=== PATIENT | male | born 1945 | race Caucasian/White ===

== ENCOUNTER → 2016-07-08 | Outpatient (CLI) | payer MEDICARE, OTHER ==
[~2016-07-08] MED LIST: ACCU CHECK; CARD120T4 PO; CARD240C6 PO; CLON0.5T PO; CLOP75 PO; FURO1TAB60 PO; FURO1TAB93 PO; IRBE150T49 PO; LANS30 PO; LEVO500T3 PO; PLAV75TA29 PO; ROSU20; ROSU40 PO; THYROXINE; VICT18IN SQ; [UNRECOGNIZED DRUG - OTHER]
[2016-07-08 14:13] LABS: ANION GAP 9 MEQ/L (5-15); BICARBONATE 28.9 MEQ/L (21.0-32.0); BLOOD UREA NITROGEN 15 MG/DL (7-18); CHLORIDE 102 MEQ/L (98-107); GLOMERULAR FILTRATION RATE 56 ML/MIN (>89); GLUCOSE,FASTING 100 MG/DL (74-99); HDL CHOLESTEROL 43.8 MG/DL (40.0-60.0); LDL CHOLESTEROL 84 MG/DL (0-99); POTASSIUM 3.5 MEQ/L (3.5-5.1); SODIUM (NA) 140 MEQ/L (136-145)
[2016-07-08 17:07] LABS: HEMOGLOBIN A1a 1.5 %; HEMOGLOBIN A1b 1.9 %; HEMOGLOBIN Ao 82.5 %; HEMOGLOBIN LA1C 2.3 %; HEMOGLOBIN P3 4.4 %
== END ==
LOC: CLAB 13:28
PROVIDERS: ATTEND Internal Medicine Cardiovascular Disease
DX: R73.01 Impaired fasting glucose (principal); I25.810 Atherosclerosis of coronary artery bypass graft(s) without angina pectoris; I51.7 Cardiomegaly; E78.2 Mixed hyperlipidemia
CPT/HCPCS: 36415; 80048; 80061; 83036

== ENCOUNTER → 2016-11-15 | Outpatient (CLI) | payer MEDICARE, OTHER ==
[2016-11-15 09:23] LABS: MEAN CORPUSCULAR HGB CONC 29.5 % (32.0-36.0)
[2016-11-15 09:52] LABS: AUTOMATED NEUTROPHIL # 6.1 TH/MM3 (1.8-7.7); BASOPHIL # 0.1 TH/MM3 (0-0.2); BASOPHIL % 0.6 % (0.0-2.0); EOSINOPHIL # 0.2 TH/MM3 (0-0.4); EOSINOPHIL % 2.1 % (0.0-4.0); HEMATOCRIT 32.8 % (39.0-51.0); HEMO FLAGS DIFF FINAL; LYMPHOCYTE # 0.9 TH/MM3 (1.0-4.8); MEAN CELL VOLUME 62.3 FL (80.0-100.0); MEAN CORPUSCULAR HEMOGLOBIN 18.4 PG (27.0-34.0); MONO % 7.7 % (0.0-8.0); NEUT % 77.6 % (16.0-70.0); PLATELET COUNT 260 TH/MM3 (150-450); RED BLOOD COUNT 5.26 MIL/MM3 (4.50-5.90); RED CELL DISTRIBUTION WIDTH 21.5 % (11.6-17.2); WHITE BLOOD COUNT 7.9 TH/MM3 (4.0-11.0)
[2016-11-15 10:25] LABS: ALKALINE PHOSPHATASE 74 U/L (45-117); ALT (GPT) 16 U/L (12-78); ANION GAP 9 MEQ/L (5-15); AST (GOT) 15 U/L (15-37); BICARBONATE 27.6 MEQ/L (21.0-32.0); BLOOD UREA NITROGEN 17 MG/DL (7-18); CHLORIDE 101 MEQ/L (98-107); GLOMERULAR FILTRATION RATE 49 ML/MIN (>89); GLUCOSE,FASTING 117 MG/DL (74-99); HDL CHOLESTEROL 39.9 MG/DL (40.0-60.0); INDIRECT BILIRUBIN 0.4 MG/DL (0.0-0.8); LDL CHOLESTEROL 90 MG/DL (0-99); POTASSIUM 3.8 MEQ/L (3.5-5.1); SODIUM (NA) 138 MEQ/L (136-145); TOTAL BILIRUBIN ADULT 0.5 MG/DL (0.2-1.0)
[2016-11-15 11:24] LABS: HEMOGLOBIN A1a 1.4 %; HEMOGLOBIN A1b 1.9 %; HEMOGLOBIN Ao 82.6 %; HEMOGLOBIN LA1C 2.5 %; HEMOGLOBIN P3 5.9 %
--- NOTE | 2016-11-21 16:52 | CATHPROC ---
[employer] HIS Report Study Information Study Number Scheduled Start Study Start [id number] 11/21/2016 Nov 21 2016 3:40PM Referring Institution Admit Source Facility Department 1 Other [facility] Physician and Clinical Staff Initial Oscar Muniz Auto Dismantler Arya Marroquin,RN Auto Dismantler Nilay RICHARDSON, Joey Recorder Neri Davis RCIS(BS) Scrub Kate Morton RT(R) Equipment Time Vocational Technical Education Teacher Description Size Mfg Part Number Used/Scraped [id number] 15:54 MEDLINE INDUSTRIES SUTURE, STRIP PLUS 1/2" * Used *[id number] 15:54 MEDLINE PACER ADHESIVE, MASTISOL 2/3CC 2/3CC 0523-48 Used 15:54 MEDLINE PACER LINN, LIMB * 2530 *[id number] Used [id number] 15:54 MEDLINE PACER PACK, PACER CUSTOM * Used *[id number] 15:54 MEDLINE PACER PEN, SKIN DUAL W/ RULER * Used *[id number] 16:02 Needle Sponge Count 1 111 Used 16:02 Needle Sponge Count 10 10 Used 16:02 Needle Sponge Count 2 2 Used [id number] *[id number] SUTURE, 3-0 VICRYL [SH] ([id number]) SUTURE, 3-0 VICRYL [SH] ([id number]) SUTURE, 4-0 MONOCRYL [PS2] (Y496G) [id number] 15:54 [employer] BLANKET,WARM AIR CCL * Used *[id number] 16:25 [employer] MEDICAL PACEMAKER, ASSILA MARTINEZ DDDR [id number] Used [place] PAD, ELECTROSURGICAL 15:54 * [id number] *[id number] Used SURGICAL GROUNDING ORANGE 16:26 VITATRON MEDTRONIC PLASMABLADE, PEAD 3.0S * [id number] Used [id number] 15:54 ZOLL MEDICAL ERINN. ELECTRODE, PRO-PADZ BIPHASIC * Used *[id number] Equipment Model, Serial, Lot Number and Expiration Data Description Model Number Serial Number Lot Number Expiration Date PACEMAKER, ASSILA MARTINEZ [id number] 01-20-2018 PLASMABLADE, PEAD 3.0S [id number] 08-26-2019 History: Allergies Allergy Reaction Norvasc History: Risk Factors Family History of Hypertension Dyslipidemia Previous DE Previous Heart Failure Premature CAD Yes Yes No No No Prior Valve Prior PCI Prior CABG Surgery No No No Cerebrovascular Peripheral Artery Chronic Lung On Dialysis Diabetes Disease Disease Disease No No No No Yes History: Stress Tests Stress or Imaging Studies Performed No History: Other Current Smoker No Labs Hgb (g/dl) Hct (%) WBC (l/cumm) Platelets (thousands) 12.00-18.00 37.00-55.00 4.80-10.80 140.00-450.00 8.7 28 6.5 228 Creatinine (mg/dl) 0.10-9.00 Not Drawn INR (PTT:PT) 0.50-2.00 1 CPK-MB (ng/ML) 0.00-7.00 Not Drawn Medication Medication Total Dose (Bolus/Oral) Medication Total Dosage/Unit 2% XYLOCAINE 50 mL FENTANYL 100 mcg VERSED 4 mg Medications (Bolus/Oral) Medication Time Given Dosage/Unit Administered By Reason VERSED 11/21/2016 4:09:00 PM 1 mg Ferlitto, Arya 1 mg VERSED given in lab by Arya Marroquin RN via Peripheral IV. Ordered by Oscar Myers. FENTANYL 11/21/2016 4:09:00 PM 25 mcg Ferlitto, Arya 25 mcg FENTANYL given in lab by Arya Marroquin RN via Peripheral IV. Ordered by Oscar Myers. VERSED 11/21/2016 4:10:00 PM 1 mg Ferlitto, Arya 1 mg VERSED given in lab by Arya Marroquin RN via Peripheral IV. Ordered by Oscar Myers. VERSED 11/21/2016 4:14:00 PM 1 mg Ferlitto, Arya 1 mg VERSED given in lab by Arya Marroquin RN via Peripheral IV. Ordered by Oscar Myers. FENTANYL 11/21/2016 4:14:00 PM 25 mcg Ferlitto, Arya 25 mcg FENTANYL given in lab by Arya Marroquin RN via Peripheral IV. Ordered by Oscar Myers. VERSED 11/21/2016 4:15:00 PM 1 mg Ferlitto, Arya 1 mg VERSED given in lab by Arya Marroquin RN via Peripheral IV. Ordered by Oscar Myers. FENTANYL 11/21/2016 4:15:00 PM 25 mcg Arya Marroquin 25 mcg FENTANYL given in lab by Arya Marroquin, DYLAN via Peripheral IV. Ordered by Oscar Myers. 2% XYLOCAINE 11/21/2016 4:15:17 PM 50 mL Oscar Myers 50 mL 2% XYLOCAINE given in lab by Oscar Myers in Left shoulder via Subcutaneous. Ordered by Oscar Myers. FENTANYL 11/21/2016 4:24:00 PM 25 mcg Arya Marroquin 25 mcg FENTANYL given in lab by Arya Marroquin, DYLAN via Peripheral IV. Ordered by Oscar Myers. Medication (Drip) Medication Time Given Dosage/Unit Concentration/Unit Diluent (ml) Solution ANCEF 11/21/2016 3:45:00 PM 2 g 2 g ANCEF given in lab by Arya Marrouqin, DYLAN in Left Antecubital via Peripheral IV. Ordered by Oscar Myers. IV Solutions 11/21/2016 3:51:24 PM 0 mL (IV) 500 NaCl .9 Patient arrived on IV Solutions in Right Hand via Peripheral IV. Pump/Drip Flow = 20 ml/hr using NaCl .9. Ordered by Oscar Myers. IV Solutions 11/21/2016 3:51:24 PM 0 mL (IV) 500 NaCl .9 Patient arrived on IV Solutions in Left Antecubital via Peripheral IV. Pump/Drip Flow = 20 ml/hr usin g NaCl .9. Ordered by Oscar Myers. VANCOMYCIN DRIP 11/21/2016 3:45:00 PM 1 g 1 g VANCOMYCIN DRIP given in lab by Arya Marroquin, DYLAN in Left Antecubital via Peripheral IV. Ordered by Oscar Myers. Initial Case Assessment Cardiovascular HR Rhythm Chest Pain 54 PACED 0 Edema Present Skin color Skin None Normal Warm Dry Circulatory - Right Pulses Dorsalis Pedis Femoral 2 2 Scale (0,1,2,3,4,d) Circulatory - Left Pulses Dorsalis Pedis Femoral 2 2 Scale (0,1,2,3,4,d) Circulatory - Lower Extremities Color Lower Right Color Lower Left Normal Normal Neurological State Oriented to time-place- Alert Moves all extremities person Respiration - General Respiration Rate SpO2 (%) O2 (lpm) (B/min) 10 99 2 Chronological Log Time Study Chronological Log 15:41:18 Patient arrived via Bed. 15:41:20 Patient Name, D.O.B, / Armband Verified By R.N. 15:41:21 Consent signed by the physician and the patient and verified by the [facility] staff. 15:41:22 Pre-op and post- op instructions given; patient acknowledges understanding of instructions. 15:41:53 Verbal Stimulation=2 Physical Stimulation=2 Airway=2 Respiration=2 TOTAL=8. (0=absent, 1=li mited, 2=present) 15:42:14 Presedation assessment performed by [facility] RN. 15:42:21 Disposable Defibrillator Pads Placed On Patient. 15:42:24 Bovie ground pad applied Vitals capture started with the following parameters, Patient=Adult, Interval=15 min, Initial P tirxyei=702 mmHg, 15:43:07 Deflation Rate=5 mmHg 15:43:19 Skin Breakdown-none present per 15:43:49 HR=57 bpm, FXOK=295/63 mmhg, SpO2=95.0 %, Resp=0 B/min, Pain=0, Glenn=10, Wall=2 15:45:00 2 g ANCEF given in lab by Arya Marroquin, DYLAN in Left Antecubital via Peripheral IV. Ordered by Oscar Myers. 15:45:00 1 g VANCOMYCIN DRIP given in lab by Arya Marroquin, DYLAN in Left Antecubital via Peripheral I V. Ordered by Oscar Myers. 15:48:42 HR=66 bpm, MPCL=424/83 mmhg, SpO2=97.0 %, Resp=15 B/min, Pain=0, Glenn=10, Wall=2 15:51:19 Patient Warmer Placed on the Table. 15:51:20 Disposable Defibrillator Pads Placed On Patient. 15:51:23 A # 20 IV was noted in the Hand (right). Grade = 0 15:51:23 A # 20 IV was noted in the Antecubital (left). Grade = 0 Patient arrived on IV Solutions in Right Hand via Peripheral IV. Pump/Drip Flow = 20 ml/hr usin g NaCl .9. Ordered by 15:51:24 Oscar Myers. Patient arrived on IV Solutions in Left Antecubital via Peripheral IV. Pump/Drip Flow = 20 ml/h r using NaCl .9. Ordered 15:51:24 by Oscar Myers. 15:51:26 History and physical on the chart or being dictated. Assessment: Initial Case, HR=54 BPM, Rhythm=PACED, Chest Pain=0, Edema=None, Color=Normal, Skin = Warm, Dry Right Pulses: Henrry Ped=2, Femoral=2 Left Pulses: Henrry Ped=2, Femoral=2 15:51:27 Lower Right Extremities: Color=Normal Lower Left Extremities: Color=Normal Neurological: State=Alert, Ox3, KIRKPATRICK Respiration: Resp=10 B/min, SpO2=99 %, O2=2 lpm 15:51:37 Left Upper Chest Prepped Times Two. 15:53:45 HR=55 bpm, YZRJ=524/75 mmhg, WrG1=919.0 %, Resp=9 B/min, Pain=0, Glenn=10, Wall=2 15:57:59 Reference ECG taken 15:58:52 HR=54 bpm, FUFX=823/68 mmhg, SpO2=99.0 %, Resp=11 B/min, Pain=0, Glenn=10, Wall=2 16:01:04 2% CHLORHEXIDINE GLUCONATE WASH AND NASAL SWIPE DONE PRIOR TO PROCEDURE. First Sponge And Instrument Count Done by Arya Marroquin RN. 16:01:36 Hypo's: 2, Sponges: 10, Bovie/scratch: 1 Sutures: 5, Blades: 2, Instruments: 26, Syveck Patches: 0 16:03:45 HR=59 bpm, NHIS=725/80 mmhg, SpO2=99.0 %, Resp=12 B/min, Pain=0, Glenn=10, Wall=2 16:04:55 paged 16:08:50 HR=54 bpm, SAHC=961/68 mmhg, SpO2=97.0 %, Resp=9 B/min, Pain=0, Glenn=10, Wall=2 16:09:00 1 mg VERSED given in lab by Arya Marroquin, RN via Peripheral IV. Ordered by Oscar Myers. 16:09:00 25 mcg FENTANYL given in lab by Arya Marroquin, DYLAN via Peripheral IV. Ordered by Whit Myers. 16:10:00 1 mg VERSED given in lab by Arya Marroquin RN via Peripheral IV. Ordered by Oscar Myers. 16:11:00 MD arrived. 16:13:49 HR=55 bpm, XKXF=296/69 mmhg, SpO2=96.0 %, Resp=20 B/min, Pain=0, Glenn=10, Wall=2 16:14:00 1 mg VERSED given in lab by Arya Marroquin RN via Peripheral IV. Ordered by Oscar Myers. 16:14:00 25 mcg FENTANYL given in lab by Arya Marroquin RN via Peripheral IV. Ordered by Whit Myers. 16:15:00 1 mg VERSED given in lab by Arya Marroquin RN via Peripheral IV. Ordered by Oscar Myers. 16:15:00 25 mcg FENTANYL given in lab by Arya Marroquin RN via Peripheral IV. Ordered by Whit Myers. Time Out. Correct patient, procedure, procedure equipment, site and side verified with physicia n present. Time 16:15:14 concurred by , individual staff. 16:15:15 Case Start 16:15:17 50 mL 2% XYLOCAINE given in lab by Oscar Myers in Left shoulder via Subcutaneous. Ordered by Oscar Myers. 16:18:51 HR=54 bpm, CUGL=348/69 mmhg, SpO2=93.0 %, Resp=13 B/min, Pain=0, Glenn=10, Wall=2 16:20:16 A pocket was created at the L Upper Chest. 16:20:46 A device was explanted. 16:21:52 A PACEMAKER, ASSILA MARTINEZ DDDR was connected and placed in the pocket. 16:22:12 Implant Procedure was performed. 16:22:25 A PPM Implant . (Dual) Second Sponge And Instrument Count Done by Oscar Myers. 16:23:00 Hypo's: 2, Sponges: 10, Bovie/scratch: 1 Sutures: ~SUTURE~, Blades: 2, Instruments: 26, Syveck Patches: 0 16:24:00 25 mcg FENTANYL given in lab by Arya Marroquin RN via Peripheral IV. Ordered by Raymundo Myers enn. 16:24:22 HR=62 bpm, TPYN=998/72 mmhg, SpO2=97.0 %, Resp=17 B/min, Pain=0, Glenn=10, Wall=2 16:28:23 The pocket was closed. 16:28:49 HR=60 bpm, BQKV=363/73 mmhg, SpO2=98.0 %, Resp=13 B/min, Pain=0, Glenn=10, Wall=2 16:33:54 HR=60 bpm, QMTY=292/64 mmhg, SpO2=97.0 %, Resp=12 B/min, Pain=0, Glenn=10, Wall=2 16:38:03 Steri-strips and a sterile dressing applied to site. The Final Sponge And Instrument Count Done by Oscar Myers. 16:38:08 Hypo's: 2, Sponges: 10, Bovie/scratch: 1 Sutures: 5, Blades: 2, Instruments: 26, Syveck Patches: 0 16:38:47 HR=57 bpm, KONZ=991/80 mmhg, SpO2=99.0 %, Resp=14 B/min, Pain=0, Glenn=10, Wall=2 16:41:20 Case End 16:43:52 HR=61 bpm, CNWV=827/72 mmhg, SpO2=98.0 %, Resp=18 B/min, Pain=0, Glenn=10, Wall=2 16:48:57 TNBE=917/69 mmhg, SpO2=98.0 % 16:49:04 Sterile dressing applied to site 16:49:04 No case complications noted. 16:49:07 Cine recording checked. 16:50:08 Bedside Report will be given. 16:50:10 Implantable Device card placed in patient's chart. 16:50:14 Contrast Scanned 16:50:17 Defibrillator and ground pads removed. Skin intact. 16:50:22 Patient moved to stretcher End Study - Radiation Exposure Fluoro Time (minutes) 0.0 End Study - Patient Disposition Complications Transferred To No Telemetry Bed
== END ==
LOC: CLAB 09:13
PROVIDERS: ATTEND Internal Medicine Cardiovascular Disease
DX: R06.02 Shortness of breath (principal); I51.7 Cardiomegaly; E10.9 Type 1 diabetes mellitus without complications; Z79.899 Other long term (current) drug therapy; R73.01 Impaired fasting glucose; E78.2 Mixed hyperlipidemia; I65.23 Occlusion and stenosis of bilateral carotid arteries; I25.10 Atherosclerotic heart disease of native coronary artery without angina pectoris; Z79.01 Long term (current) use of anticoagulants
CPT/HCPCS: 36415; 80048; 80061; 80076; 83036; 84439; 84443; 84480; 85025

== ENCOUNTER 2016-11-21 12:51 | Day surgery (SDC) | payer MEDICARE, OTHER ==
--- NOTE | 2016-11-20 10:22 | MH ---
cc: GATITO RODRIGUEZ M.D. DATE OF ADMISSION: 11/21/2016 HISTORY OF PRESENT ILLNESS: The patient is a 71-year-old white male with a history of coronary artery disease, pacemaker implant, diabetes and hypertension who is now admitted for pacemaker generator replacement. His pacemaker battery has been found to be nearing end-of-life on a routine check. Clinically he has been doing well, basically asymptomatic. PAST MEDICAL HISTORY: 1. Coronary artery disease status post bypass surgery 2007. His last heart catheterization was 10/23/2011 showing moderate to severe three-vessel [place] coronary artery disease, patent 3/3 bypass grafts including a vein graft to the posterior descending artery, vein graft to a high obtuse marginal or ramus intermedius, left internal mammary artery to the diagonal with good retrograde flow into the left anterior descending, ejection fraction of 55%. 2. Hypertension 3. Diabetes 4. [place] permanent pacemaker implant 2008 for sick sinus syndrome. CARDIAC MEDICATIONS: 1. Crestor 420 milligrams daily. 2. Cardizem CD 240 milligrams daily. 3. Avapro 150 milligrams daily. 4. Lasix 40 milligrams daily. 5. Lovastatin 30 milligrams daily. 6. Plavix 75 milligrams daily. ALLERGIES: NO KNOWN DRUG ALLERGIES. FAMILY HISTORY: Noncontributory. SOCIAL HISTORY: The patient denies any history of alcohol or tobacco abuse. REVIEW OF SYSTEMS: Review of systems as in the history of present illness otherwise negative or noncontributory. PHYSICAL EXAMINATION: VITAL SIGNS: Blood pressure 130/70 with a pulse of 60, respirations 18. GENERAL: He is a well-developed, well-nourished white male in no acute distress. HEAD, EYES, EARS, NOSE, THROAT: On HEENT examination, jugular venous pressure is normal. Carotid pulses are 2+ bilaterally and without bruits. CHEST: Examination of the chest reveals clear lung lr. CARDIAC: On cardiac examination, he has a regular rhythm and rate without S3, S4 or murmur. ABDOMEN: On abdominal examination, he has a soft, nontender abdomen. Bowel sounds are present. There is no definite hepatosplenomegaly. EXTREMITIES: Examination of extremities reveals no clubbing, cyanosis or edema. IMPRESSION: Pacemaker battery nearing end-of-life in this 71-year-old white male with a history of pacemaker implant 2008, history of coronary disease, hypertension, diabetes, hyperlipidemia. The patient has been recommended pacemaker generator replacement. The nature of this procedure and potential risks have been outlined. He agrees to proceed. PLANS: Pacemaker generator replacement on 11/21/2016. MD ANIA Victor/JCBryan /5:33 PM /10:22 AM
[~2016-11-21] VITALS: Ht 177.8 cm; Wt 109.4 kg
[~2016-11-21 12:51] MED LIST changes: -CARD240C6 PO; -CLON0.5T PO; -FURO1TAB60 PO; -LEVO500T3 PO; -PLAV75TA29 PO; -ROSU40 PO
[2016-11-21] MEDS ORDERED: METOPROLOL TARTRATE 25 MG TAB PO PRN (13:30)
[2016-11-21] MEDS ORDERED: CHLORHEXIDINE GLUCONATE 2 % 1 PACK (2 CLOTHS) TOPICAL SCH (13:30)
[2016-11-21] MEDS ORDERED: CHLORHEXIDINE GLUCONATE 2 % 1 PACK (2 CLOTHS) TOPICAL PRN (13:30)
[2016-11-21] MEDS ORDERED: POVIDONE IODINE 5% (ANTISEPSIS KIT) 4 APPLICATIONS EACH NARE SCH (13:30)
[2016-11-21] MEDS ORDERED: Hold AM Insulin & AM Hypoglycemic medications in diabetic patients PRN (13:30)
[2016-11-21] MEDS ORDERED: NS 1000 ML IV SCH (13:30)
[2016-11-21] MEDS ORDERED: LACTATED RINGER'S 1000 ML IV PRN (13:30)
[2016-11-21] MEDS ORDERED: MUPIROCIN 2% OINT 1 APPLIC/GM SYR NASAL SCH (13:30)
[2016-11-21] MEDS ORDERED: POVIDONE IODINE 5% (ANTISEPSIS KIT) 4 APPLICATIONS EACH NARE PRN (13:30)
[2016-11-21] MEDS ORDERED: SODIUM CHLORID 0.9% 500 ML IV PRN (13:30)
[2016-11-21] MEDS ORDERED: INSULIN HUMAN REGULAR 1,000 UNITS/10 ML VIAL SQ PRN (13:30)
[2016-11-21] MEDS ORDERED: ceFAZolin 2 GM PREMIX 50 ML IV SCH (13:30)
[2016-11-21 13:59] VITALS: BP 124/68; PULSE 59; RESP 16; TEMP 98.3; O2SAT 96
[2016-11-21] MEDS ORDERED: VICT18IN SQ (14:03)
[2016-11-21] MEDS ORDERED: IRBE150T49 PO (14:03)
[2016-11-21] MEDS ORDERED: CLON0.5T PO (14:03)
[2016-11-21] MEDS ORDERED: FURO1TAB60 PO (14:03)
[2016-11-21] MEDS ORDERED: PLAV75TA29 PO (14:03)
[2016-11-21] MEDS ORDERED: ROSU40 PO (14:03)
[2016-11-21] MEDS ORDERED: CARD240C6 PO (14:03)
[2016-11-21 14:04] LABS: AUTOMATED NEUTROPHIL # 4.9 TH/MM3 (1.8-7.7); BASOPHIL % 0.5 % (0.0-2.0); EOSINOPHIL # 0.1 TH/MM3 (0-0.4); EOSINOPHIL % 1.8 % (0.0-4.0); HEMO FLAGS DIFF FINAL; LYMPH % 14.4 % (9.0-44.0); LYMPHOCYTE # 0.9 TH/MM3 (1.0-4.8); MEAN CELL VOLUME 62.2 FL (80.0-100.0); MEAN CORPUSCULAR HEMOGLOBIN 19.3 PG (27.0-34.0); MONO % 7.4 % (0.0-8.0); NEUT % 75.9 % (16.0-70.0); PLATELET COUNT 228 TH/MM3 (150-450); RED CELL DISTRIBUTION WIDTH 21.9 % (11.6-17.2); WHITE BLOOD COUNT 6.5 TH/MM3 (4.0-11.0)
[2016-11-21 14:13] LABS: APTT (PATIENT) 29.5 SEC (24.3-30.1); PROTHROMBIN TIME - PATIENT 10.5 SEC (9.8-11.6)
[2016-11-21] MEDS ORDERED: VANCOMYCIN HCL 1000 MG VIAL ONE (14:15)
[2016-11-21 14:20] LABS: BICARBONATE 25.6 MEQ/L (21.0-32.0); POTASSIUM 3.9 MEQ/L (3.5-5.1)
[2016-11-21] MEDS ORDERED: MIDAZOLAM HCL 5 MG/5 ML VIAL ONE (15:39)
[2016-11-21] MEDS ORDERED: LIDOCAINE HCL 2% 50 ML VIAL ONE (15:54)
[2016-11-21] MEDS ORDERED: LEVO500T3 PO (16:42)
[2016-11-21] MEDS ORDERED: ACETAMINOPHEN 325 MG TAB PO PRN (16:45)
--- NOTE | 2016-11-22 14:30 | EKG ---
Date Performed: 11/21/2016 Time Performed: 14:01:08 PTAGE: 71 years EKG: Undetermined rhythm, possible sinus with first degree AV block Clinical correlation is stro ngly recommended Abnormal ECG PREVIOUS TRACING : 05/05/2013 12.05 DOCTOR: Alexx Harris Interpretating Date/Time 11/22/2016 14:29:58
--- NOTE | 2016-11-23 16:33 | MP ---
cc: GATITO RODRIGUEZ M.D. DATE OF SURGERY:11/23/2016. PROCEDURE Pacemaker generator replacement. INDICATIONS: Pacemaker battery nearing end-of-life DESCRIPTION OF THE PROCEDURE IN DETAIL: The patient was brought to the operating suite in a fasting state after having signed informed consent. The left upper chest was prepped and draped as per policy and anesthetized with 1% lidocaine. A transverse incision was made over the preexisting generator using a plasma blade. Using blunt dissection, the generator was freed from the subcutaneous pocket. The atrial and ventricular leads were disconnected and then reconnected to the new generator, which is a [place] [employer] device. Right atrial and right ventricular pacing lead parameters were found to be excellent. The leads and the generator were replaced back into the subcutaneous pocket, which was closed using 3-0 Vicryl interrupted stitches in two layers to close the subcutaneous tissue and then 4-0 Monocryl running stitch to close the subcuticular tissue. Overlapping Steri-Strips and a pressure dressing were applied. There were no apparent immediate complications. CONCLUSION: Successful dual-chamber permanent pacemaker generator replacement using a [place] [employer]urity pacemaker generator. MD ANIA Victor/JENELLE /4:41 PM /4:29 PM KANWAL
== END 2016-11-21 19:18 | disposition home or self-care (01) ==
LOC: HDIC 12:51 → HCAT 12:51
PROVIDERS: ATTEND Internal Medicine Cardiovascular Disease
DX: Z45.010 Encounter for checking and testing of cardiac pacemaker pulse generator [battery] (principal); I49.5 Sick sinus syndrome; I25.10 Atherosclerotic heart disease of native coronary artery without angina pectoris; I10 Essential (primary) hypertension; E11.9 Type 2 diabetes mellitus without complications; E78.5 Hyperlipidemia, unspecified; Z01.810 Encounter for preprocedural cardiovascular examination; Z01.818 Encounter for other preprocedural examination
CPT/HCPCS: 33228; 80048; 85025; 85610; 85730; 93005; C1785; J0690; J2250; J3010; J3370

== ENCOUNTER → 2016-11-29 | Outpatient (CLI) | payer MEDICARE, OTHER ==
[~2016-11-29] MED LIST changes: -ACCU CHECK; -CARD120T4 PO; +CARD240C6 PO; +CLON0.5T PO; -CLOP75 PO; +FURO1TAB60 PO; -FURO1TAB93 PO; -LANS30 PO; +LEVO500T3 PO; +PLAV75TA29 PO; -ROSU20; +ROSU40 PO; -THYROXINE; -[UNRECOGNIZED DRUG - OTHER]
[2016-11-29 07:54] LABS: MEAN CORPUSCULAR HGB CONC 29.3 % (32.0-36.0)
[2016-11-29 08:21] LABS: HEMATOCRIT 30.7 % (39.0-51.0); MEAN CELL VOLUME 63.1 FL (80.0-100.0); MEAN CORPUSCULAR HEMOGLOBIN 18.5 PG (27.0-34.0); PLATELET COUNT 208 TH/MM3 (150-450); RED BLOOD COUNT 4.86 MIL/MM3 (4.50-5.90); RED CELL DISTRIBUTION WIDTH 22.7 % (11.6-17.2); RETIC % 2.2 % (0.4-3.0); REVIEW FLAG FINAL; WHITE BLOOD COUNT 7.4 TH/MM3 (4.0-11.0)
[2016-11-29 09:05] LABS: FERRITIN 10 NG/ML (26-388); TRANSFERRIN IRON PROFILE 339 MG/DL (200-360)
== END ==
LOC: CLAB 07:48
PROVIDERS: ATTEND Family Medicine
DX: D64.89 Other specified anemias (principal)
CPT/HCPCS: 36415; 82607; 82728; 82746; 83540; 83550; 85027; 85044

== ENCOUNTER → 2017-07-15 | Outpatient (CLI) | payer MEDICARE, OTHER ==
[2017-07-15 12:18] LABS: AUTOMATED NEUTROPHIL # 5.8 TH/MM3 (1.8-7.7); BASOPHIL % 0.5 % (0.0-2.0); EOSINOPHIL # 0.1 TH/MM3 (0-0.4); HEMATOCRIT 46.4 % (39.0-51.0); HEMOGLOBIN 15.7 GM/DL (13.0-17.0); LYMPH % 12.4 % (9.0-44.0); LYMPHOCYTE # 0.9 TH/MM3 (1.0-4.8); MEAN CELL VOLUME 91.8 FL (80.0-100.0); MEAN CORPUSCULAR HEMOGLOBIN 31.2 PG (27.0-34.0); MEAN CORPUSCULAR HGB CONC 33.9 % (32.0-36.0); MEAN PLATELET VOLUME 8.1 FL (7.0-11.0); MONO % 7.6 % (0.0-8.0); MONOCYTE # 0.6 TH/MM3 (0-0.9); NEUT % 77.5 % (16.0-70.0); PLATELET COUNT 197 TH/MM3 (150-450); RED BLOOD COUNT 5.05 MIL/MM3 (4.50-5.90); RED CELL DISTRIBUTION WIDTH 15.6 % (11.6-17.2); WHITE BLOOD COUNT 7.4 TH/MM3 (4.0-11.0)
[2017-07-15 13:34] LABS: ALBUMIN 3.8 GM/DL (3.4-5.0); ALT (GPT) 22 U/L (12-78); AST (GOT) 22 U/L (15-37); BICARBONATE 29.7 MEQ/L (21.0-32.0); BLOOD UREA NITROGEN 17 MG/DL (7-18); CHLORIDE 102 MEQ/L (98-107); CREATININE 1.18 MG/DL (0.60-1.30); GLOMERULAR FILTRATION RATE 61 ML/MIN (>89); GLUCOSE,FASTING 128 MG/DL (74-99); SODIUM (NA) 139 MEQ/L (136-145)
[2017-07-15 13:43] LABS: ALKALINE PHOSPHATASE 67 U/L (45-117); TOTAL BILIRUBIN ADULT 0.5 MG/DL (0.2-1.0); TOTAL PROTEIN 7.3 GM/DL (6.4-8.2)
[2017-07-15 16:46] LABS: HEMOGLOBIN A1C 6.9 % (4.3-6.0)
== END ==
LOC: CLAB 11:38
PROVIDERS: ATTEND Family Medicine
DX: I12.9 Hypertensive chronic kidney disease with stage 1 through stage 4 chronic kidney disease, or unspecified chronic kidney disease (principal); D63.1 Anemia in chronic kidney disease; E11.9 Type 2 diabetes mellitus without complications; D50.8 Other iron deficiency anemias
CPT/HCPCS: 36415; 80053; 83036; 84443; 85025